=== PATIENT | male | born 1990 | race Caucasian/White ===

== ENCOUNTER 2017-03-06 12:59 | Emergency (ER) | payer SELFPAY ==
[~2017-03-06] VITALS: Ht 170.2 cm; Wt 72.6 kg
[2017-03-06 13:00] VITALS: BP_SYST 141
--- NOTE | 2017-03-06 13:00 | NUR ---
Dr Arzate at bedside examining patient
--- NOTE | 2017-03-06 13:00 | NUR ---
TRIAGED AND BROUGHT RIGHT BACK TO BED #7, CALLED DR SHORE TO BEDSIDE, REPORT GIVEN TO NURSE
[2017-03-06] MEDS ORDERED: ALBUTEROL SULFATE 0.083% 2.5 MG/3 ML VIAL.NEB INH ONE (13:30)
[2017-03-06] MEDS ORDERED: IPRATROPIUM BROM 0.5 MG/2.5 ML VIAL.NEB (ATROVENT) INH ONE ×3 (13:30→14:19)
[2017-03-06] MEDS ORDERED: PREDNISONE 20 MG TABLET PO ONE (13:30)
--- NOTE | 2017-03-06 13:45 | NUR ---
Pt brought by family member, A&O x4 , pt c/o cough and wheezing , pt states he has Hx of asthma and his breathing machine broke, VSS, cap refill <3,skin pink and warm.
[2017-03-06] MEDS ORDERED: LevALBUTEROL HCL 1.25 MG/0.5 ML *CONC.* VIAL.NEB (XOPENEX CONC.) INH ONE ×3 (14:15→16:00)
[2017-03-06] MEDS ORDERED: TERBUTALINE SULFATE 1 MG/ML VIAL SUBCUT ONE (14:30)
--- NOTE | 2017-03-06 14:30 | NUR ---
Pt on stable condition, VS WNL.
--- NOTE | 2017-03-06 16:22 | NUR ---
RT at bedside for a third breathing treatment.
--- NOTE | 2017-03-06 17:22 | NUR ---
Patient given written and verbal discharge instructions and verbalizes understanding. ER MD discussed with patient the results and treatment provided. Patient in stable condition. ID arm band removed. Rx of Prednisone and Dulera inhalor given. Patient educated on pain management and to follow up with PMD. Pain Scale 0/10. Opportunity for questions provided and answered.
[2017-03-06 17:25] VITALS: BP_SYST 134
== END 2017-03-06 17:17 | disposition home or self-care (01) ==
LOC: SED 12:59
DX: J45.901 Unspecified asthma with (acute) exacerbation (principal)
CPT/HCPCS: 71010; 94640; 99284; J7512